=== PATIENT | female | born 1990 | race Two or more races ===

== ENCOUNTER → 2022-08-04 | Outpatient (CLI) | payer BC ==
[2022-08-04 08:51] LABS: Basophils # (auto) 0 10 ^3/uL (0-0.2); Basophils % (auto) 0.5 % (0.0-2.0); Eosinophils # (auto) 0.1 10 ^3/uL (0-0.8); Hematocrit 38.1 % (36.0-46.0); Hemoglobin 12.8 g/dL (12.2-16.2); Lymphocytes # (auto) 1.7 10 ^3/uL (0.4-5.4); Mean Corpuscular Hemoglobin 28.4 pg (28.0-32.0); Mean Corpuscular Hgb Conc. 33.6 g/dL (32.0-36.0); Mean Corpuscular Volume 84.6 fL (80.0-100.0); Monocytes # (auto) 0.3 10 ^3/uL (0-1.3); Monocytes % (auto) 4.8 % (0.0-12.0); Neutrophils # (auto) 4.2 10 ^3/uL (1.6-8.6); Neutrophils % (auto) 65.7 % (37.0-80.0); Nucleated Red Blood Cells % 1.1 %; Red Cell Distribution Width 13.7 % (11.8-14.3); White Blood Cell 6.4 10^3/uL (4.4-10.8)
[2022-08-04 09:20] LABS: Albumin 3.7 g/dL (3.4-5.0); Potassium 3.9 mmol/L (3.5-5.1)
[2022-08-04 09:28] LABS: BUN/Creatinine Ratio 16.9 (10.0-20.0); Bilirubin, Total 0.5 mg/dL (0.2-1.0); Calcium 8.9 mg/dL (8.5-10.1); Total Protein 7.5 g/dL (6.4-8.2)
[2022-08-04 09:29] LABS: Free T4 (Free Thyroxine) 1.19 ng/dL (0.89-1.76)
[2022-08-05 08:59] LABS: Hepatitis B Surface Antibody Positive (Negative)
[2022-08-05 09:32] LABS: Hepatitis A Total Antibody Positive (Negative)
== END | disposition home or self-care (01) ==
LOC: LAB 08:28
PROVIDERS: ATTEND Nurse Practitioner Family
DX: E03.9 Hypothyroidism, unspecified (principal); N63.0 Unspecified lump in unspecified breast; E66.01 Morbid (severe) obesity due to excess calories; Z76.89 Persons encountering health services in other specified circumstances; Z86.16 Personal history of COVID-19
CPT/HCPCS: 36415; 80053; 80061; 82306; 82607; 83036; 84439; 84443; 85025; 86376; 86706; 86708; 86735; 86762; 86765; 86787

== ENCOUNTER → 2022-09-08 | Outpatient (CLI) | payer BC | END | disposition home or self-care (01) | LOC: LAB 15:08 | DX: E66.3 Overweight (principal) | CPT/HCPCS: 36415; 84439; 84443 ==

== ENCOUNTER → 2022-10-08 | Outpatient (CLI) | payer BC ==
[2022-10-08 16:48] LABS: Free T3 3.58 pg/mL (2.3-4.2); Free T4 (Free Thyroxine) 3.36 ng/dL (0.89-1.76)
== END | disposition home or self-care (01) ==
LOC: LAB 15:51
DX: E03.8 Other specified hypothyroidism (principal)
CPT/HCPCS: 36415; 84439; 84443; 84481

== ENCOUNTER → 2023-03-31 | Outpatient (CLI) | payer BC ==
[2023-03-31 11:59] LABS: T3 Total 1.3 ng/mL (0.60-1.81)
[2023-03-31 12:00] LABS: Follicle Stimulating Hormone 5.92 IU/L (SEE BELOW); Leuteinizing Hormone 7.9 IU/L
[2023-03-31 12:01] LABS: Free T4 (Free Thyroxine) 1.11 ng/dL (0.89-1.76)
== END | disposition home or self-care (01) ==
LOC: LAB 11:02
DX: E06.3 Autoimmune thyroiditis (principal); N92.6 Irregular menstruation, unspecified
CPT/HCPCS: 36415; 82670; 83001; 83002; 84144; 84403; 84439; 84443; 84480

== ENCOUNTER → 2023-05-11 | Outpatient (CLI) | payer BC ==
[2023-05-11 07:49] LABS: Basophils # (auto) 0 10 ^3/uL (0-0.2); Basophils % (auto) 0.5 % (0.0-2.0); Eosinophils # (auto) 0.1 10 ^3/uL (0-0.8); Eosinophils % (auto) 1.5 % (0.0-7.0); Hematocrit 38.2 % (36.0-46.0); Hemoglobin 12.8 g/dL (12.2-16.2); Lymphocytes # (auto) 1.9 10 ^3/uL (0.4-5.4); Lymphocytes % (auto) 23.8 % (10.0-50.0); Mean Corpuscular Hemoglobin 28.1 pg (28.0-32.0); Mean Corpuscular Hgb Conc. 33.4 g/dL (32.0-36.0); Mean Corpuscular Volume 84.2 fL (80.0-100.0); Monocytes # (auto) 0.5 10 ^3/uL (0-1.3); Monocytes % (auto) 6.1 % (0.0-12.0); Neutrophils # (auto) 5.4 10 ^3/uL (1.6-8.6); Neutrophils % (auto) 68.1 % (37.0-80.0); Red Blood Cells 4.54 10^6/uL (4.0-5.20); Red Cell Distribution Width 14.1 % (11.8-14.3)
[2023-05-11 08:17] LABS: Alanine Aminotransferase 28 U/L (7-40); Albumin 4.6 g/dL (3.2-4.8); Alkaline Phosphatase 89 U/L (46-116); Anion Gap 8 (5-15); Aspartate Aminotransferase 18 U/L (13-40); BUN/Creatinine Ratio 15.4 (10.0-20.0); Bilirubin, Total 0.6 mg/dL (0.2-1.0); Blood Urea Nitrogen 10 mg/dL (9-23); Calcium 9.7 mg/dL (8.5-10.1); Carbon Dioxide 25 mmol/L (20-30); Chloride 106 mmol/L (98-107); Cholesterol 183 mg/dL (< 200); Glucose 95 mg/dL (74-106); HDL Cholesterol 44 mg/dL (40-59); LDL Cholesterol 128 mg/dL (< 100); Potassium 3.7 mmol/L (3.5-5.1); Sodium 139 mmol/L (136-145); Total Protein 7.4 g/dL (5.7-8.2); Triglycerides 104 mg/dL (< 150)
[2023-05-11 08:19] LABS: % Iron Saturation 17.5 % (15-50); Thyroid Stimulating Hormone 6.15 uIU/mL (0.55-4.78)
[2023-05-11 08:20] LABS: Beta HCG, Quantitative 0.9 mIU/mL (1.5-4.2)
[2023-05-11 08:51] LABS: Free T4 (Free Thyroxine) 1.08 ng/dL (0.89-1.76)
[2023-05-11 08:52] LABS: Ferritin 52.5 ng/mL (10-291)
[2023-05-11 08:53] LABS: Folate (Folic Acid) > 24.00 ng/mL (>5.38); Free T3 3.15 pg/mL (2.3-4.2)
[2023-05-11 09:06] LABS: Magnesium 2.1 mg/dL (1.6-2.6)
[2023-05-12 07:07] LABS: Homocyst(e)ine 7.4 umol/L (0.0-14.5)
== END | disposition home or self-care (01) ==
LOC: LAB 07:28
PROVIDERS: ATTEND Nurse Practitioner Family
DX: Z13.29 Encounter for screening for other suspected endocrine disorder (principal); Z13.1 Encounter for screening for diabetes mellitus; Z13.0 Encounter for screening for diseases of the blood and blood-forming organs and certain disorders involving the immune mechanism; E06.3 Autoimmune thyroiditis
CPT/HCPCS: 36415; 80053; 80061; 82533; 82607; 82728; 82746; 83036; 83090; 83540; 83550; 83735; 84436; 84439; 84443; 84481; 84550; 84702; 85025; 86800

== ENCOUNTER → 2023-06-28 | Outpatient (CLI) | payer BC ==
[2023-06-28 09:06] LABS: Free T4 (Free Thyroxine) 1.25 ng/dL (0.89-1.76)
== END | disposition home or self-care (01) ==
LOC: LAB 07:41
PROVIDERS: ATTEND Nurse Practitioner Family
DX: Z13.29 Encounter for screening for other suspected endocrine disorder (principal); Z13.21 Encounter for screening for nutritional disorder; E03.9 Hypothyroidism, unspecified
CPT/HCPCS: 36415; 82306; 82533; 83090; 84144; 84439; 84443

== ENCOUNTER → 2023-08-09 | Outpatient (CLI) | payer BC ==
[2023-08-09 10:23] LABS: Basophils # (auto) 0 10 ^3/uL (0-0.2); Basophils % (auto) 0.5 % (0.0-2.0); Eosinophils # (auto) 0.1 10 ^3/uL (0-0.8); Eosinophils % (auto) 2.1 % (0.0-7.0); Hematocrit 37.1 % (36.0-46.0); Hemoglobin 12.5 g/dL (12.2-16.2); Lymphocytes # (auto) 2.1 10 ^3/uL (0.4-5.4); Lymphocytes % (auto) 29.7 % (10.0-50.0); Mean Corpuscular Hemoglobin 28.3 pg (28.0-32.0); Mean Corpuscular Hgb Conc. 33.7 g/dL (32.0-36.0); Monocytes # (auto) 0.4 10 ^3/uL (0-1.3); Monocytes % (auto) 5.4 % (0.0-12.0); Neutrophils # (auto) 4.3 10 ^3/uL (1.6-8.6); Neutrophils % (auto) 62.3 % (37.0-80.0); Red Blood Cells 4.41 10^6/uL (4.0-5.20); White Blood Cell 6.9 10^3/uL (4.4-10.8)
[2023-08-09 11:22] LABS: Alanine Aminotransferase 32 U/L (7-40); Albumin 4.4 g/dL (3.2-4.8); Alkaline Phosphatase 96 U/L (46-116); Anion Gap 4 (5-15); Aspartate Aminotransferase 14 U/L (13-40); BUN/Creatinine Ratio 13.8 (10.0-20.0); Blood Urea Nitrogen 8 mg/dL (9-23); Calcium 9.7 mg/dL (8.5-10.1); Carbon Dioxide 29 mmol/L (20-30); Chloride 106 mmol/L (98-107); Glucose 83 mg/dL (74-106); LDL Cholesterol 115 mg/dL (< 100); Potassium 3.9 mmol/L (3.5-5.1); Sodium 139 mmol/L (136-145); Triglycerides 117 mg/dL (< 150)
[2023-08-09 11:23] LABS: Bilirubin, Total 0.3 mg/dL (0.2-1.0); Cholesterol 164 mg/dL (< 200); HDL Cholesterol 38 mg/dL (40-59); Total Protein 7.2 g/dL (5.7-8.2)
[2023-08-09 11:33] LABS: Ferritin 68.2 ng/mL (10-291); T3 Total 1.3 ng/mL (0.60-1.81)
[2023-08-09 11:34] LABS: Free T4 (Free Thyroxine) 1.21 ng/dL (0.89-1.76)
[2023-08-11 12:07] LABS: QuantiFERON-TB Gold Plus Negative (Negative)
== END | disposition home or self-care (01) ==
LOC: LAB 10:09
PROVIDERS: ATTEND Nurse Practitioner Family
DX: E06.3 Autoimmune thyroiditis (principal); E78.5 Hyperlipidemia, unspecified; R73.9 Hyperglycemia, unspecified
CPT/HCPCS: 36415; 80053; 80061; 82728; 83036; 83540; 84439; 84443; 84480; 85025; 86038

== ENCOUNTER → 2023-12-06 | Outpatient (CLI) | payer BC | END | disposition home or self-care (01) | LOC: LAB 07:44 | PROVIDERS: ATTEND Nurse Practitioner Family | DX: Z31.41 Encounter for fertility testing (principal); E06.3 Autoimmune thyroiditis | CPT/HCPCS: 36415; 84439; 84443 ==

== ENCOUNTER → 2024-01-03 | Outpatient (CLI) | payer BC | END | disposition home or self-care (01) | LOC: LAB 07:15 | PROVIDERS: ATTEND Nurse Practitioner Family | DX: N97.0 Female infertility associated with anovulation (principal); N91.2 Amenorrhea, unspecified | CPT/HCPCS: 82626; 84146 ==

== ENCOUNTER → 2024-01-31 | Outpatient (CLI) | payer BC | END | disposition home or self-care (01) | LOC: LAB 13:39 | PROVIDERS: ATTEND Nurse Practitioner Family | DX: Z32.01 Encounter for pregnancy test, result positive (principal) | CPT/HCPCS: 36415; 84144; 84702 ==

== ENCOUNTER → 2024-02-07 | Outpatient (CLI) | payer BC ==
[2024-02-07 08:17] LABS: Beta HCG, Quantitative 23.8 mIU/mL (1.5-4.2)
[2024-02-07 08:21] LABS: Thyroid Stimulating Hormone 3.09 uIU/mL (0.55-4.78)
[2024-02-07 09:04] LABS: Free T3 3.16 pg/mL (2.3-4.2); Free T4 (Free Thyroxine) 1.21 ng/dL (0.89-1.76); T3 Total 1.4 ng/mL (0.60-1.81)
[2024-02-08 08:06] LABS: Thyroxine (T4) 11.9 ug/dL (4.5-12.0)
== END | disposition home or self-care (01) ==
LOC: LAB 06:50
PROVIDERS: ATTEND Obstetrics & Gynecology
DX: O03.9 Complete or unspecified spontaneous abortion without complication (principal)
CPT/HCPCS: 36415; 84436; 84439; 84443; 84479; 84480; 84481; 84702; 86376

== ENCOUNTER → 2024-03-02 | Outpatient (CLI) | payer BC | END | disposition home or self-care (01) | LOC: LAB 14:41 | PROVIDERS: ATTEND Obstetrics & Gynecology | DX: O03.9 Complete or unspecified spontaneous abortion without complication (principal) | CPT/HCPCS: 36415; 84702 ==

== ENCOUNTER → 2024-03-27 | Outpatient (CLI) | payer BC ==
[2024-03-27 09:08] LABS: Free T3 3.79 pg/mL (2.3-4.2); T3 Total 1.62 ng/mL (0.60-1.81)
[2024-03-27 09:09] LABS: Free T4 (Free Thyroxine) 1.52 ng/dL (0.89-1.76)
[2024-03-28 12:06] LABS: Thyroxine (T4) 12.4 ug/dL (4.5-12.0)
[2024-03-28 13:06] LABS: Thyroid Peroxidase (TPO) Ab 246 IU/mL (0-34)
[2024-03-29 00:06] LABS: Thyroglobulin Antibody <1.0 IU/mL (0.0-0.9)
== END | disposition home or self-care (01) ==
LOC: LAB 06:56
PROVIDERS: ATTEND Obstetrics & Gynecology
DX: Z11.59 Encounter for screening for other viral diseases (principal); E06.3 Autoimmune thyroiditis; E61.2 Magnesium deficiency; B58.9 Toxoplasmosis, unspecified; B25.9 Cytomegaloviral disease, unspecified
CPT/HCPCS: 36415; 82306; 83735; 84436; 84439; 84443; 84480; 84481; 86376; 86777; 86800

== ENCOUNTER → 2024-05-25 | Outpatient (CLI) | payer BC ==
[2024-05-25 15:00] LABS: Basophils # (auto) 0 10 ^3/uL (0-0.2); Basophils % (auto) 0.6 % (0.0-2.0); Eosinophils # (auto) 0.2 10 ^3/uL (0-0.8); Eosinophils % (auto) 3.5 % (0.0-7.0); Hematocrit 38.1 % (36.0-46.0); Hemoglobin 12.7 g/dL (12.2-16.2); Lymphocytes # (auto) 1.7 10 ^3/uL (0.4-5.4); Lymphocytes % (auto) 25.2 % (10.0-50.0); Mean Corpuscular Hemoglobin 27.6 pg (28.0-32.0); Mean Corpuscular Hgb Conc. 33.5 g/dL (32.0-36.0); Mean Corpuscular Volume 82.6 fL (80.0-100.0); Monocytes # (auto) 0.4 10 ^3/uL (0-1.3); Monocytes % (auto) 6.3 % (0.0-12.0); Neutrophils # (auto) 4.4 10 ^3/uL (1.6-8.6); Neutrophils % (auto) 64.4 % (37.0-80.0); Nucleated Red Blood Cells % 0.1 %; Platelet Count (auto) 263 10^3/uL (140-450); Red Blood Cells 4.61 10^6/uL (4.0-5.20); Red Cell Distribution Width 14.4 % (11.8-14.3); White Blood Cell 6.8 10^3/uL (4.4-10.8)
[2024-05-25 15:47] LABS: Ferritin 58.3 ng/mL (10-291)
[2024-05-25 16:06] LABS: Folate (Folic Acid) 35.98 ng/mL (>5.38)
[2024-05-25 16:37] LABS: % Iron Saturation 15.2 % (15-50)
[2024-05-26 08:07] LABS: Varicella Zoster IgG Antibody Reactive (Non Reactive)
[2024-05-26 11:07] LABS: Anti-Nuclear Antibody Direct Negative (Negative)
== END | disposition home or self-care (01) ==
LOC: LAB 14:04
DX: Z13.0 Encounter for screening for diseases of the blood and blood-forming organs and certain disorders involving the immune mechanism (principal); N97.0 Female infertility associated with anovulation
CPT/HCPCS: 36415; 82607; 82728; 82746; 83540; 83550; 85025; 86038; 86141; 86762; 86787; 86850; 86900; 86901

== ENCOUNTER 2024-08-09 12:48 | Outpatient (CLI) | payer BC ==
[2024-08-09 13:11] LABS: Basophils # (auto) 0.1 10 ^3/uL (0-0.2); Basophils % (auto) 0.8 % (0.0-2.0); Eosinophils # (auto) 0.4 10 ^3/uL (0-0.8); Eosinophils % (auto) 5.3 % (0.0-7.0); Hematocrit 38.5 % (36.0-46.0); Hemoglobin 12.9 g/dL (12.2-16.2); Lymphocytes # (auto) 2.1 10 ^3/uL (0.4-5.4); Mean Corpuscular Hemoglobin 27.4 pg (28.0-32.0); Mean Corpuscular Hgb Conc. 33.5 g/dL (32.0-36.0); Mean Corpuscular Volume 81.9 fL (80.0-100.0); Monocytes # (auto) 0.4 10 ^3/uL (0-1.3); Neutrophils # (auto) 5.3 10 ^3/uL (1.6-8.6); Neutrophils % (auto) 63.9 % (37.0-80.0); Nucleated Red Blood Cells % 0.1 %; Platelet Count (auto) 244 10^3/uL (140-450); White Blood Cell 8.3 10^3/uL (4.4-10.8)
[2024-08-09 13:46] LABS: Alanine Aminotransferase 23 U/L (7-40); Albumin 4.7 g/dL (3.2-4.8); Alkaline Phosphatase 92 U/L (46-116); Anion Gap 10 (5-15); Aspartate Aminotransferase 16 U/L (0-34); BUN/Creatinine Ratio 16.9 (10.0-20.0); Blood Urea Nitrogen 11 mg/dL (9-23); Calcium 9.6 mg/dL (8.7-10.4); Carbon Dioxide 25 mmol/L (20-31); Chloride 105 mmol/L (98-107); Glucose 89 mg/dL (74-106); Potassium 3.9 mmol/L (3.5-5.1); Sodium 140 mmol/L (136-145); Total Protein 7.7 g/dL (5.7-8.2)
[2024-08-09 13:47] LABS: Bilirubin, Total 0.5 mg/dL (0.2-1.0)
[2024-08-09 13:50] LABS: Free T3 2.85 pg/mL (2.3-4.2); Free T4 (Free Thyroxine) 1.42 ng/dL (0.89-1.76); T3 Total 1.32 ng/mL (0.60-1.81)
[2024-08-09 15:01] LABS: Triglycerides 88 mg/dL (< 150)
[2024-08-09 15:03] LABS: Cholesterol 178 mg/dL (< 200); HDL Cholesterol 45 mg/dL (40-59); LDL Cholesterol 122 mg/dL (< 100)
[2024-08-10 08:07] LABS: Insulin 33.7 uIU/mL (2.6-24.9)
[2024-08-11 18:07] LABS: t-Transglutaminase (tTG) IgA <2 U/mL (0-3)
== END 2024-08-09 17:00 | disposition home or self-care (01) ==
LOC: LAB 12:48
PROVIDERS: ATTEND Nurse Practitioner Family
DX: E06.3 Autoimmune thyroiditis (principal); E78.5 Hyperlipidemia, unspecified; R10.9 Unspecified abdominal pain; Z00.01 Encounter for general adult medical examination with abnormal findings
CPT/HCPCS: 36415; 80053; 80061; 83036; 83525; 84439; 84443; 84480; 84481; 85025

== ENCOUNTER 2024-08-14 07:22 | Outpatient (CLI) | payer BC | END 2024-08-14 17:00 | disposition home or self-care (01) | LOC: LAB 07:22 | DX: Z34.00 Encounter for supervision of normal first pregnancy, unspecified trimester (principal); E72.11 Homocystinuria; E06.3 Autoimmune thyroiditis; Z87.59 Personal history of other complications of pregnancy, childbirth and the puerperium; Z3A.00 Weeks of gestation of pregnancy not specified | CPT/HCPCS: 36415; 83090; 84144; 84702 ==

== ENCOUNTER 2024-08-14 14:37 | Outpatient (CLI) | payer BC ==
[2024-08-14 14:39] LABS: Urine Bacteria None Seen /hpf (None Seen)
[2024-08-14 14:53] LABS: Urine Blood Negative /uL (Negative); Urine Clarity Clear (Clear); Urine Color Light-Yellow (Yellow); Urine Protein, UAD Negative (Negative); Urine Specific Gravity 1.019 (1.001-1.035); Urine Squamous Epithelial Cell None Seen /hpf (<5); Urine Urobilinogen Normal (Negative); Urine WBC < 1 /HPF (0-5)
== END 2024-08-14 17:00 | disposition home or self-care (01) ==
LOC: LAB 14:37
PROVIDERS: ATTEND Nurse Practitioner Family
DX: E78.5 Hyperlipidemia, unspecified (principal); E06.3 Autoimmune thyroiditis; R10.9 Unspecified abdominal pain; Z00.01 Encounter for general adult medical examination with abnormal findings
CPT/HCPCS: 81001

== ENCOUNTER → 2024-08-16 | Outpatient (CLI) | payer BC | END | disposition home or self-care (01) | LOC: LAB 11:27 | DX: Z34.01 Encounter for supervision of normal first pregnancy, first trimester (principal); Z3A.00 Weeks of gestation of pregnancy not specified | CPT/HCPCS: 36415; 82670; 84144; 84702 ==

== ENCOUNTER 2024-08-21 06:56 | Outpatient (CLI) | payer BC | END 2024-08-21 17:00 | disposition home or self-care (01) | LOC: LAB 06:56 | DX: Z34.00 Encounter for supervision of normal first pregnancy, unspecified trimester (principal) | CPT/HCPCS: 36415; 82670; 84144; 84702 ==

== ENCOUNTER 2024-09-11 07:37 | Outpatient (CLI) | payer BC ==
[2024-09-11 08:15] LABS: Hematocrit 38.7 % (36.0-46.0); Hemoglobin 13.0 g/dL (12.2-16.2); Mean Corpuscular Hemoglobin 27.7 pg (28.0-32.0); Mean Corpuscular Volume 82.4 fL (80.0-100.0); Nucleated Red Blood Cells % 0.1 %
[2024-09-11 08:43] LABS: Thyroid Stimulating Hormone 0.84 uIU/mL (0.55-4.78)
[2024-09-11 08:46] LABS: Alanine Aminotransferase 22 U/L (7-40); Albumin 4.8 g/dL (3.2-4.8); Alkaline Phosphatase 88 U/L (46-116); Anion Gap 11 (5-15); BUN/Creatinine Ratio 11.4 (10.0-20.0); Carbon Dioxide 24 mmol/L (20-31); Chloride 102 mmol/L (98-107); Glucose 86 mg/dL (74-106); Potassium 3.6 mmol/L (3.5-5.1); Sodium 137 mmol/L (136-145); Total Protein 7.7 g/dL (5.7-8.2)
[2024-09-11 08:47] LABS: Bilirubin, Total 0.5 mg/dL (0.2-1.0)
[2024-09-11 08:49] LABS: Blood Urea Nitrogen 8 mg/dL (9-23); Calcium 10.5 mg/dL (8.7-10.4)
[2024-09-11 08:57] LABS: Iron 51 ug/dL (50-170)
[2024-09-11 08:58] LABS: Beta HCG, Quantitative 94328.1 mIU/mL (1.5-4.2)
[2024-09-11 09:00] LABS: Total Iron Binding Capacity 289 ug/dL (250-425)
[2024-09-11 09:06] LABS: Ferritin 51.7 ng/mL (10-291)
[2024-09-11 09:09] LABS: Free T4 (Free Thyroxine) 1.37 ng/dL (0.89-1.76)
[2024-09-11 11:34] LABS: RUBELLA Positive
[2024-09-11 11:48] LABS: Urine Protein, UAD Negative (Negative)
[2024-09-13 03:07] LABS: Chlamydia Trachomatis, NAA Negative (Negative); Neisseria gonorrhoeae, NAA Negative (Negative)
== END 2024-09-11 17:00 | disposition home or self-care (01) ==
LOC: LAB 07:37
PROVIDERS: ATTEND Nurse Practitioner Family
DX: O99.281 Endocrine, nutritional and metabolic diseases complicating pregnancy, first trimester (principal); E06.3 Autoimmune thyroiditis; Z3A.00 Weeks of gestation of pregnancy not specified
CPT/HCPCS: 36415; 80053; 81001; 81025; 82306; 82670; 82728; 83036; 83540; 83550; 84439; 84443; 84702; 85025; 86703; 86706; 86762; 86780; 86787; 86803; 86850; 86900; 86901; 87086

== ENCOUNTER 2024-10-10 10:35 | Outpatient (CLI) | payer BC ==
[2024-10-10 12:12] LABS: Free T4 (Free Thyroxine) 1.24 ng/dL (0.89-1.76)
== END 2024-10-10 17:00 | disposition home or self-care (01) ==
LOC: LAB 10:35
PROVIDERS: ATTEND Nurse Practitioner Family
DX: O99.281 Endocrine, nutritional and metabolic diseases complicating pregnancy, first trimester (principal); E06.3 Autoimmune thyroiditis; Z3A.00 Weeks of gestation of pregnancy not specified
CPT/HCPCS: 36415; 83735; 84144; 84436; 84439; 84443; 84479; 84480; 86376; 86703; 86800

== ENCOUNTER 2024-11-20 07:10 | Outpatient (CLI) | payer BC ==
[2024-11-20 08:58] LABS: Free T4 (Free Thyroxine) 1.15 ng/dL (0.89-1.76)
== END 2024-11-20 17:00 | disposition home or self-care (01) ==
LOC: LAB 07:10
PROVIDERS: ATTEND Nurse Practitioner Family
DX: O99.282 Endocrine, nutritional and metabolic diseases complicating pregnancy, second trimester (principal); E06.3 Autoimmune thyroiditis; Z3A.00 Weeks of gestation of pregnancy not specified
CPT/HCPCS: 36415; 84144; 84439; 84443

== ENCOUNTER 2024-12-25 07:02 | Outpatient (CLI) | payer BC ==
[2024-12-25 08:45] LABS: Free T4 (Free Thyroxine) 1.23 ng/dL (0.89-1.76)
== END 2024-12-25 17:00 | disposition home or self-care (01) ==
LOC: LAB 07:02
DX: E06.3 Autoimmune thyroiditis (principal); E03.9 Hypothyroidism, unspecified
CPT/HCPCS: 36415; 84436; 84439; 84443; 84479; 84480; 86376